=== PATIENT | female | born 1990 | race Caucasian/White ===

== ENCOUNTER 2017-08-24 00:32 | Emergency (ER) | payer OTHER | END 2017-08-24 01:48 | disposition home or self-care (01) | LOC: HOBED 00:32 | DX: O99.613 Diseases of the digestive system complicating pregnancy, third trimester (principal); K21.9 Gastro-esophageal reflux disease without esophagitis; Z3A.31 31 weeks gestation of pregnancy | CPT/HCPCS: 99283 ==